=== PATIENT | female | born 1970 | race Caucasian/White ===

== ENCOUNTER 2017-01-16 15:43 | Emergency (ER) | payer OTHER ==
[~2017-01-16] VITALS: Ht 165.1 cm; Wt 77.3 kg
[2017-01-16] MEDS ORDERED: OMEP40CA2 PO (15:53)
[2017-01-16] MEDS ORDERED: TUMS500C PO (15:54)
[2017-01-16 16:50] LABS: BASO % 0.4 % (0.0-1.0); EOS # 0.2 K/mm3 (0.0-0.50); EOS % 2.7 % (0.0-3.0); LARGE UNSTAINED CELL # 0.1 K/mm3 (0.0-0.4); LARGE UNSTAINED CELL % 1.6 % (0.0-4.0); LYMPH # 1.9 K/mm3 (1.5-4.5); LYMPH % 22.4 % (24.0-44.0); MEAN CORPUSCULAR HEMOGLOBIN 30.9 pg (27.0-33.0); MEAN CORPUSCULAR HGB CONC 34.2 g/dl (32.0-36.5); MEAN CORPUSCULAR VOLUME 90.5 fl (80.0-96.0); MONO # 0.6 K/mm3 (0.0-0.8); MONO % 7.3 % (0.0-5.0); NEUTROPHILS # 5.2 K/mm3 (1.8-7.7); NEUTROPHILS % 65.6 % (36.0-66.0); PLATELET COUNT, AUTOMATED 308 k/mm3 (150-450); RED CELL DISTRIBUTION WIDTH 12.5 % (11.5-14.5); WHITE BLOOD COUNT 7.9 K/mm3 (4.0-10.0)
[2017-01-16 16:55] LABS: INR 0.89
[2017-01-16 17:10] LABS: ALKALINE PHOSPHATASE 45 U/L (45-117); ALT/SGPT 33 U/L (12-78); AST/SGOT 25 U/L (15-37); BILIRUBIN,DIRECT < 0.1 MG/DL (0.0-0.2); BILIRUBIN,TOTAL 0.3 MG/DL (0.2-1.0); BLOOD UREA NITROGEN 9 MG/DL (7-18); CALCIUM LEVEL 8.1 MG/DL (8.5-10.1); CARBON DIOXIDE LEVEL 26 MEQ/L (21-32); CHLORIDE LEVEL 108 MEQ/L (98-107); CREATININE FOR GFR 0.77 MG/DL (0.55-1.02); FREE T4 1.04 NG/DL (0.76-1.46); GLUCOSE, FASTING 90 MG/DL (70-105); POTASSIUM SERUM 3.6 MEQ/L (3.5-5.1); SODIUM LEVEL 142 MEQ/L (136-145); TOTAL PROTEIN 6.5 GM/DL (6.4-8.2)
[2017-01-16 17:39] LABS: ALBUMIN 3.9 GM/DL (3.2-5.2); ANION GAP 8 MEQ/L (8-16)
[2017-01-16] MEDS ORDERED: NS 1,000 ML IV ONE ×2 (17:45→21:00)
--- NOTE | 2017-01-16 17:55 | REP ---
HISTORY: Chest pain. COMPARISON: None. The technique utilized in obtaining the radiograph has magnified the cardiac silhouette and accentuated the interstitial markings. The superior mediastinal structures are midline. The cardiac silhouette is unremarkable in size, shape, and position. The diaphragmatic surfaces of the lungs are regular, and the costophrenic angles are clear. The pulmonary zabala are clear. The imaged osseous structures are intact. IMPRESSION: There is no acute cardiopulmonary disease. Signed by Jose Walters DO 01/16/2017 06:58 P
[2017-01-16] MEDS ORDERED: ASPIRIN 81 MG CHEW TABLET PO ONE (18:45)
--- NOTE | 2017-01-16 20:36 | ECGEPIP ---
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
--- NOTE | 2017-01-16 20:38 | ECGEPIP ---
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
--- NOTE | 2017-01-16 20:40 | ECGEPIP ---
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
[2017-01-16] MEDS ORDERED: ISOVUE-370 76% 100ML VIAL (Q9967) As Ordered ONE (21:42)
--- NOTE | 2017-01-16 23:40 | REPUSA ---
CLINICAL HISTORY: Chest pain. TECHNIQUE: Scans are obtained with the bolus injection of IV contrast media. COMMENTS: There is excellent opacification of the aorta and pulmonary arterial structures. The aorta is normal caliber and there is no dissection of the intima. No defect is seen in the pulmonary arteries to suggest pulmonary embolus. The lungs are fully expande d and there is no consolidation, mass, or pleural effusion. There are no enlarged mediastinal or hilar lymph nodes. Bilateral breast prostheses are in place. Small hiatal hernia is present. There is evidence of a lobulated cyst in the anterior segment of the right hepatic lobe which measure s 3.2 x 2.3 cm. The bony structures appear intact. IMPRESSION: 1. CTA Chest negative for pulmonary embolus. 2. Small hiatal hernia. 3. Lobulated cyst in the anterior segment of the right hepatic lobe which measures 3.2 x 2.3 cm.
[2017-01-16 23:53] VITALS: BP 132/88
[2017-01-17] MEDS ORDERED: ASPI81TA85 PO (00:01)
--- NOTE | 2017-01-17 07:24 | ED PDOC ---
Post-Departure Follow-Up certified letter sent to patient regarding radiology report Willow Lopez MD Jan 17, 2017 07:24
[2017-02-15] MEDS ORDERED: MULTCAP11 PO (10:58)
[2017-02-15] MEDS ORDERED: CALC600T60 PO (10:58)
[2017-02-15] MEDS ORDERED: VITA100067 PO (10:58)
[2017-02-15] MEDS ORDERED: HYDRO50TAB PO (10:58)
[2017-02-15] MEDS ORDERED: MAGN500C PO (10:58)
== END 2017-01-17 00:15 | disposition home or self-care (01) ==
LOC: M ED 15:43
DX: R07.9 Chest pain, unspecified (principal)
CPT/HCPCS: 71010; 71275; 80048; 80076; 82550; 82553; 84439; 84443; 85025; 85610; 85730; 93005; 93041; 94760; 99285; Q9967

== ENCOUNTER 2017-01-25 18:42 | Emergency (ER) | payer OTHER ==
[~2017-01-25] VITALS: Ht 165.1 cm; Wt 77.3 kg
[~2017-01-25 18:42] MED LIST: ASPI81TA85 PO; OMEP40CA2 PO; TUMS500C PO
[2017-01-25] MEDS ORDERED: MORPHINE 4 MG/ML 1ML SYRINGE IV ONE (19:15)
[2017-01-25] MEDS ORDERED: KETOROLAC 30 MG/ML VIAL (J1885) IV ONE (19:15)
[2017-01-25] MEDS ORDERED: NS 500 ML IV ONE (19:15)
[2017-01-25] MEDS ORDERED: ONDANSETRON 4MG/2ML VIAL (J2405) IV ONE (19:15)
[2017-01-25 19:54] LABS: BASO % 0.4 % (0.0-1.0); EOS % 0.4 % (0.0-3.0); LARGE UNSTAINED CELL # 0.1 K/mm3 (0.0-0.4); LYMPH # 0.8 K/mm3 (1.5-4.5); LYMPH % 7.7 % (24.0-44.0); MEAN CORPUSCULAR HEMOGLOBIN 30.2 pg (27.0-33.0); MEAN CORPUSCULAR VOLUME 88.8 fl (80.0-96.0); MONO # 0.8 K/mm3 (0.0-0.8); MONO % 8.1 % (0.0-5.0); NEUTROPHILS # 8.1 K/mm3 (1.8-7.7); NEUTROPHILS % 82.4 % (36.0-66.0); PLATELET COUNT, AUTOMATED 289 k/mm3 (150-450); WHITE BLOOD COUNT 9.8 K/mm3 (4.0-10.0)
[2017-01-25 20:01] LABS: INR 0.87
[2017-01-25] MEDS ORDERED: fentaNYL 100 MCG/2 ML INJECTION (J3010) IV ONE (20:15)
[2017-01-25 20:23] LABS: ALBUMIN 4.1 GM/DL (3.2-5.2); ALBUMIN/GLOBULIN RATIO 1.52 (1.00-1.93); ALKALINE PHOSPHATASE 48 U/L (45-117); ALT/SGPT 22 U/L (12-78); ANION GAP 8 MEQ/L (8-16); AST/SGOT 11 U/L (15-37); BILIRUBIN,DIRECT 0.1 MG/DL (0.0-0.2); BILIRUBIN,TOTAL 0.3 MG/DL (0.2-1.0); BLOOD UREA NITROGEN 10 MG/DL (7-18); CALCIUM LEVEL 8.8 MG/DL (8.5-10.1); CARBON DIOXIDE LEVEL 25 MEQ/L (21-32); CHLORIDE LEVEL 104 MEQ/L (98-107); CREATININE FOR GFR 0.85 MG/DL (0.55-1.02); GLOMERULAR FILTRATION RATE > 60.0 (>58); GLUCOSE, FASTING 112 MG/DL (70-105); POTASSIUM SERUM 3.9 MEQ/L (3.5-5.1); SODIUM LEVEL 137 MEQ/L (136-145); TOTAL PROTEIN 6.8 GM/DL (6.4-8.2)
[2017-01-25] MEDS ORDERED: ISOVUE-370 76% 100ML VIAL (Q9967) As Ordered ONE (21:04)
--- NOTE | 2017-01-25 22:20 | REPUSA ---
CLINICAL HISTORY: RLQ pain and right flank pain. TECHNIQUE: Multiple axial, coronal, sagittal CT images were obtained through the abdomen and pelvis. Images were obtained before and after IV contrast administration. Oral contrast material was not adm inistered COMMENTS: Note is made of multiple hepatic cysts, the largest is located in the anterior segment of the right l obe and is lobulated measuring 3.2 x 2.4 cm. There is no intra or extrahepatic biliary ductal dilata tion. The spleen is normal. The gallbladder is within normal limits. The pancreas is of normal con tour and attenuation characteristics. There is no evidence of adrenal mass. Both kidneys demonstrate prompt and equal nephrograms. The kidneys are normal in size, shape and con figuration. There is no evidence of renal or ureteral mass. No renal or ureteral calculi are identi fied. There is no hydroureter or hydronephrosis. No evidence for appendicitis. Note is made of fluid filled thick wall loops of bowel compatible with enteritis. All segments are involved. There is also evidence of fluid filled thick wall loops of t he colon compatible with colitis. All segments are involved. No evidence for small or large bowel ob struction. There is no evidence of abdominal ascites or lymphadenopathy. There is no evidence of intrinsic or extrinsic bladder mass. There is no pelvic ascites or lymphaden opathy. Within the right ovary note is made of 3 x 2.6 cm fat containing mass compatible with a dermoid. The patient is status post hysterectomy. The left ovary is not identified with certainty. Small hiatal hernia is seen. Bibasilar atelectatic changes are present. Bilateral breasts prosthese s are present. Images of the lung bases show no evidence of pleural or parenchymal mass. There are no pleural effusions. Small fat containing umbilical hernia is seen. The bony structures are free of lytic or blastic lesions. IMPRESSION: 1. Evidence of enteritis and colitis. Infectious and inflammatory etiologies are considered. Consi chantal consultation with GI service. Follow-up with colonoscopy and endoscopy. 2. Multiple hepatic cysts, the largest is 3.2 cm. 3. 3 cm right ovarian dermoid. 4. Small hiatal hernia is seen. 5. Bibasilar atelectatic changes. 6. Bilateral breasts prostheses. 7. Small fat containing umbilical hernia.
[2017-01-25] MEDS ORDERED: methylPREDNISolone INJ 125 MG/2 ML VIAL (J2930) IV ONE (23:30)
[2017-01-25] MEDS ORDERED: PRED20TA PO (23:30)
[2017-01-25 23:56] VITALS: BP 124/83
--- NOTE | 2017-01-26 08:23 | ECGEPIP ---
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
[2017-02-15] MEDS ORDERED: HYDRO50TAB PO (10:58)
[2017-02-15] MEDS ORDERED: CALC600T60 PO (10:58)
[2017-02-15] MEDS ORDERED: MULTCAP11 PO (10:58)
[2017-02-15] MEDS ORDERED: MAGN500C PO (10:58)
[2017-02-15] MEDS ORDERED: VITA100067 PO (10:58)
== END 2017-01-26 00:07 | disposition home or self-care (01) ==
LOC: M ED 18:42
DX: K52.9 Noninfective gastroenteritis and colitis, unspecified (principal)
CPT/HCPCS: 74178; 80048; 80076; 81001; 83605; 83690; 85025; 85610; 93005; 93041; 96361; 96374; 96375; 99284; J1885; J2405; J2930; J3010; Q9967

== ENCOUNTER 2017-02-22 09:01 | Outpatient (CLI) | payer OTHER ==
[~2017-02-22] VITALS: Ht 165.1 cm; Wt 71.2 kg
[~2017-02-22 09:01] MED LIST changes: +CALC600T60 PO; +HYDRO50TAB PO; +MAGN500C PO; +MULTCAP11 PO; +PRED20TA PO; +VITA100067 PO
[2017-02-22] MEDS ORDERED: NS 1,000 ML IV SCH (09:15)
[2017-02-22] MEDS ORDERED: fentaNYL 100 MCG/2 ML INJECTION (J3010) As Ordered ONE (10:12)
[2017-02-22] MEDS ORDERED: PROPOFOL 200 MG/20 ML VIAL As Ordered ONE ×2 (10:13→10:43)
[2017-02-22] MEDS ORDERED: LIDOCAINE 2% INJ 100 MG/5 ML SDV (FOR ANES.) As Ordered ONE (10:13)
--- NOTE | 2017-02-22 11:21 | ROOR ---
Patient Name: Lisa Roldan Procedure Date: 02/22/2017 10:28 AM Date of : 1970 Age: 47 Room: [facility] Gender: Female Note Status: Finalized Procedure: Upper GI endoscopy Indications: Epigastric abdominal pain, Abnormal CT of the GI tract Providers: Fabian Horn MD Referring MD: GLENYS VERONICA MD Requesting Provider: Medicines: Monitored Anesthesia Care Complications: No immediate complications. Procedure: Pre-Anesthesia Assessment: - Prior to the procedure, a History and Physical was performed, and patient medications and allergies were reviewed. The patient is competent. The risks and benefits of the procedure and the sedation options and risks were discussed with the patient. All questions were answered and informed consent was obtained. Patient identification and proposed procedure were verified by the physician, the nurse and the chief mate in the procedure room. Mental Status Examination: normal. Airway Examination: normal oropharyngeal airway and neck mobility. Respiratory Examination: clear to auscultation. CV Examination: normal. Prophylactic Antibiotics: The patient does not require prophylactic antibiotics. Prior Anticoagulants: The patient has taken no previous anticoagulant or antiplatelet agents. ASA Grade Assessment: II - A patient with mild systemic disease. After reviewing the risks and benefits, the patient was deemed in satisfactory condition to undergo the procedure. The anesthesia plan was to use monitored anesthesia care (MAC). Immediately prior to administration of medications, the patient was re-assessed for adequacy to receive sedatives. The heart rate, respiratory rate, oxygen saturations, blood pressure, adequacy of pulmonary ventilation, and response to care were monitored throughout the procedure. The physical status of the patient was re-assessed after the procedure. The Endoscope was introduced through the mouth, and advanced to the second part of duodenum. The upper GI endoscopy was accomplished without difficulty. The patient tolerated the procedure well. Findings: LA Grade A (one or more mucosal breaks less than 5 mm, not extending between tops of 2 mucosal folds) esophagitis with no bleeding was found in the lower third of the esophagus. Biopsies were taken with a cold forceps for histology. Verification of patient identification for the specimen was done by the physician and nurse using the patient's name, date and medical record number. Estimated blood loss was minimal. The entire examined stomach was normal. The duodenal bulb and second portion of the duodenum were normal. Biopsies for histology were taken with a cold forceps for evaluation of celiac disease. Impression: - LA Grade A reflux esophagitis. Biopsied. - Normal stomach. - Normal duodenal bulb and second portion of the duodenum. Biopsied. Recommendation: - Patient has a contact number available for emergencies. The signs and symptoms of potential delayed complications were discussed with the patient. Return to normal activities tomorrow. Written discharge instructions were provided to the patient. - Resume previous diet. - Continue present medications. - Use a proton pump inhibitor PO daily for 12 weeks. - Return to GI clinic as previously scheduled 03/08/2017 9:00 AM. - Return to primary care physician. Fabian Horn MD Fabian Horn MD 02/22/2017 11:20:50 AM This report has been signed electronically. Number of Addenda: 0 Note Initiated On: 02/22/2017 10:28 AM Estimated Blood Loss: Estimated blood loss was minimal.
[2017-02-22 11:25] VITALS: BP 113/74
--- NOTE | 2017-02-22 11:26 | ROOR ---
Patient Name: Lisa Roldan Procedure Date: 02/22/2017 10:29 AM Date of : 1970 Age: 47 Room: [facility] Gender: Female Note Status: Finalized Procedure: Colonoscopy Indications: Abnormal CT of the GI tract Providers: Fabian Horn MD Referring MD: GLENYS VERONICA MD Requesting Provider: Medicines: Monitored Anesthesia Care Complications: No immediate complications. Procedure: Pre-Anesthesia Assessment: - Prior to the procedure, a History and Physical was performed, and patient medications and allergies were reviewed. The patient is competent. The risks and benefits of the procedure and the sedation options and risks were discussed with the patient. All questions were answered and informed consent was obtained. Patient identification and proposed procedure were verified by the physician, the nurse and the filler leaf cutter long in the procedure room. Mental Status Examination: alert and oriented. Airway Examination: normal oropharyngeal airway and neck mobility. Respiratory Examination: clear to auscultation. CV Examination: normal. Prophylactic Antibiotics: The patient does not require prophylactic antibiotics. Prior Anticoagulants: The patient has taken no previous anticoagulant or antiplatelet agents. ASA Grade Assessment: II - A patient with mild systemic disease. After reviewing the risks and benefits, the patient was deemed in satisfactory condition to undergo the procedure. The anesthesia plan was to use monitored anesthesia care (MAC). Immediately prior to administration of medications, the patient was re-assessed for adequacy to receive sedatives. The heart rate, respiratory rate, oxygen saturations, blood pressure, adequacy of pulmonary ventilation, and response to care were monitored throughout the procedure. The physical status of the patient was re-assessed after the procedure. The Colonoscope was introduced through the anus and advanced to the terminal ileum, with identification of the appendiceal orifice and IC valve. The colonoscopy was performed without difficulty. The patient tolerated the procedure well. The quality of the bowel preparation was good. The terminal ileum, ileocecal valve, appendiceal orifice, and rectum were photographed. Scope insertion time was 4 minutes. Scope withdrawal time was 10 minutes. The total duration of the procedure was 20 minutes. Findings: The perianal and digital rectal examinations were normal. The terminal ileum appeared normal. A 3 mm polyp was found in the transverse colon. The polyp was sessile. The polyp was removed with a cold biopsy forceps. Resection and retrieval were complete. Verification of patient identification for the specimen was done by the physician and nurse using the patient's name, date and medical record number. Estimated blood loss was minimal. A few small-mouthed diverticula were found in the sigmoid colon. There was no evidence of diverticular bleeding. Non-bleeding external and internal hemorrhoids were found during retroflexion. The hemorrhoids were medium-sized. Normal mucosa was found from rectum to cecum. Biopsies for histology were taken with a cold forceps from the ascending colon, transverse colon, descending colon and rectum for evaluation of microscopic colitis. Impression: - The examined portion of the ileum was normal. - One 3 mm polyp in the transverse colon, removed with a cold biopsy forceps. Resected and retrieved. - Mild diverticulosis in the sigmoid colon. There was no evidence of diverticular bleeding. - Non-bleeding external and internal hemorrhoids. - Normal mucosa from rectum to cecum. Biopsied. Recommendation: - Patient has a contact number available for emergencies. The signs and symptoms of potential delayed complications were discussed with the patient. Return to normal activities tomorrow. Written discharge instructions were provided to the patient. - High fiber diet. - Continue present medications. - Await pathology results. - Repeat colonoscopy in 5-10 years for surveillance based on pathology results. - Return to GI clinic as previously scheduled 03/08/2017 at 9:00 AM. - Return to primary care physician. Fabian Horn MD Fabian Horn MD 02/22/2017 11:26:16 AM This report has been signed electronically. Number of Addenda: 0 Note Initiated On: 02/22/2017 10:29 AM Estimated Blood Loss: Estimated blood loss was minimal.
== END 2017-02-22 11:32 | disposition home or self-care (01) ==
LOC: M OPP 09:01
PROVIDERS: ATTEND Internal Medicine Gastroenterology
DX: R93.3 Abnormal findings on diagnostic imaging of other parts of digestive tract (principal); D12.3 Benign neoplasm of transverse colon; K57.30 Diverticulosis of large intestine without perforation or abscess without bleeding; K64.4 Residual hemorrhoidal skin tags; K64.8 Other hemorrhoids; K21.0 Gastro-esophageal reflux disease with esophagitis; F41.9 Anxiety disorder, unspecified; F33.9 Major depressive disorder, recurrent, unspecified; G43.909 Migraine, unspecified, not intractable, without status migrainosus; Z87.442 Personal history of urinary calculi; Z85.828 Personal history of other malignant neoplasm of skin; Z79.899 Other long term (current) drug therapy; Z88.5 Allergy status to narcotic agent
CPT/HCPCS: 43239; 45380; 88305; J3010

== ENCOUNTER → 2018-07-29 | Outpatient (CLI) | payer OTHER ==
--- NOTE | 2018-07-29 10:58 | REP ---
CT Head without contrast HISTORY: Headache COMPARISON: None There is no intraparenchymal hemorrhage, acute infarct, mass or midline shift. The ventricular system is normal in appearance. There is no extra cerebral collection. There is no fracture. The visualized sinuses are clear. IMPRESSION: There is no intracranial lesion. Electronically Signed by Jasbir Hurtado MD 07/29/2018 10:50 A
--- NOTE | 2018-07-29 11:03 | REP ---
CT cervical spine without contrast HISTORY: Neck pain COMPARISON: None There is no acute fracture or subluxation. Disc bulges are present at the C3-4 and C4-5 levels. A disc bulge with associated osteophyte formation is present at the C5-6 level. There is minimal narrowing of the spinal canal. Uncinate process hypertrophy is present at the C5-6 level. This produces minimal narrowing of the C5 neural foramina. There is no other disc bulge or herniation. The remaining neural foramina are patent. The C5-6 intervertebral disc is decreased in height consistent with disc degeneration. There is nonunion of the right posterior C1 neural arch. IMPRESSION: 1. There is no acute fracture or subluxation. 2. There is cervical spondylosis at the C3-4 through C5-6 levels. Electronically Signed by Jasbir Hurtado MD 07/29/2018 10:55 A
== END ==
LOC: M RAD 10:26
PROVIDERS: ATTEND Family Medicine
DX: M54.2 Cervicalgia (principal); R51 Headache

== ENCOUNTER → 2019-07-09 | Outpatient (REF) | payer OTHER ==
[~2019-07-09] MED LIST changes: +HYDR1TAB33 PO; -HYDRO50TAB PO; -OMEP40CA2 PO; +OMEP40CA97 PO
[2019-07-09 16:07] LABS: APPEARANCE, URINE HAZY (CLEAR); BACTERIA, URINE AUTO 1+ (NEGATIVE); BASO % 0.4 % (0.0-1.0); BILIRUBIN, URINE AUTO NEGATIVE (NEGATIVE); BLOOD, URINE BLOOD NEGATIVE (NEGATIVE); COLOR, URINE YELLOW (YELLOW); EOS # 0.1 10^3/uL (0.0-0.5); EOS % 1.3 % (0.0-3.0); GLUCOSE, URINE (UA) AUTO NEGATIVE (NEGATIVE); HEMOGLOBIN 12.7 g/dl (12.0-15.5); KETONE, URINE AUTO NEGATIVE (NEGATIVE); LEUKOCYTE ESTERASE, URINE AUTO 1+ (NEGATIVE); LYMPH # 1.9 10^3/uL (1.5-5.0); LYMPH % 22.6 % (24.0-44.0); MEAN CORPUSCULAR HEMOGLOBIN 29.2 pg (27.0-33.0); MEAN CORPUSCULAR HGB CONC 32.6 g/dl (32.0-36.5); MEAN CORPUSCULAR VOLUME 89.7 fl (80.0-96.0); MONO # 0.7 10^3/uL (0.0-0.8); MONO % 7.7 % (0.0-5.0); NEUTROPHILS # 5.7 10^3/uL (1.5-8.5); NEUTROPHILS % 67.8 % (36.0-66.0); NITRITE, URINE AUTO POSITIVE (NEGATIVE); PLATELET COUNT, AUTOMATED 376 10^3/uL (150-450); PROTEIN, URINE AUTO NEGATIVE (NEGATIVE); RBC, URINE AUTO 2 /HPF (0-3); RED BLOOD COUNT 4.35 10^6/uL (4.00-5.40); SPECIFIC GRAVITY URINE AUTO 1.006 (1.002-1.035); SQUAMOUS EPITHELIAL CELL UR AU 0 /HPF (0-6); UROBILINOGEN, URINE AUTO 0.2 mg/dL (0.0-2.0); WBC, URINE AUTO 6 /HPF (0-3); WHITE BLOOD COUNT 8.4 10^3/uL (4.0-10.0)
[2019-07-09 16:12] LABS: ALBUMIN 4.3 GM/DL (3.2-5.2); ALT/SGPT 76 U/L (12-78); BILIRUBIN,TOTAL 0.4 MG/DL (0.2-1.0); BLOOD UREA NITROGEN 12 MG/DL (7-18); C REACTIVE PROTEIN QUANTITATIV < 0.30 MG/DL (0.00-0.30); CARBON DIOXIDE LEVEL 26 MEQ/L (21-32); CHLORIDE LEVEL 106 MEQ/L (98-107); CREATININE FOR GFR 0.78 MG/DL (0.55-1.30); GLOMERULAR FILTRATION RATE > 60.0 (>58); GLUCOSE, FASTING 87 MG/DL (70-100); POTASSIUM SERUM 4.3 MEQ/L (3.5-5.1); SODIUM LEVEL 140 MEQ/L (136-145); TOTAL PROTEIN 7.2 GM/DL (6.4-8.2)
== END ==
LOC: M SFHCPLAZ 14:12
PROVIDERS: ATTEND Internal Medicine Infectious Disease
DX: N39.0 Urinary tract infection, site not specified (principal)
CPT/HCPCS: 36415; 80053; 81001; 85025; 86140; 87088; 87186; G0463

== ENCOUNTER → 2019-07-16 | Outpatient (CLI) | payer OTHER ==
[~2019-07-16] MED LIST changes: +ISOVUE-370 76% 100ML VIAL (Q9967) As Ordered ONE
--- NOTE | 2019-07-16 21:23 | REP ---
Clinical: History of recurrent urinary tract infection. Comparison: 01/25/2017. Technique: Precontrast, contrast enhanced, and and delayed images of the abdomen and pelvis using 100 ml Isovue 370 intravenous contrast material. Coronal and sagittal re-formations obtained. Findings: 15 x 11 x 7 mm nonobstructing calculus in the lower pole left kidney noted. The bilateral kidneys are otherwise normal in appearance and without perinephric stranding, hydronephrosis, cystic or mass lesion. Liver demonstrates multiple scattered cysts primarily sub centimeter in size, and including 3.7 cm simple cyst in the anterior segment right lobe. Spleen, pancreas, gallbladder, and bilateral adrenal glands are normal. The enteric system is without obstruction or acute inflammatory process. Pelvis demonstrates normal bladder and evidence for prior hysterectomy. A stable fat containing lesion in the deep posterior pelvis measuring approximately 3.5 cm maximal diameter may reflect teratoma. Impression: 1. 15 mm nonobstructing calculus in the lower pole left kidney. 2. Stable benign appearing hepatic cysts. 3. Stable fat-containing lesion in the deep right brittni pelvis likely representing teratoma. Electronically Signed by Narciso Patel MD 07/16/2019 09:14 P
== END ==
LOC: M RAD 17:06
PROVIDERS: ATTEND Internal Medicine Infectious Disease
DX: N39.0 Urinary tract infection, site not specified (principal); N20.0 Calculus of kidney
CPT/HCPCS: 74178; Q9967

== ENCOUNTER → 2019-08-14 | Outpatient (REF) | payer OTHER ==
[~2019-08-14] MED LIST changes: -ISOVUE-370 76% 100ML VIAL (Q9967) As Ordered ONE
== END ==
LOC: M SMT 18:07
PROVIDERS: ATTEND Urology
DX: N39.0 Urinary tract infection, site not specified (principal)
CPT/HCPCS: 81002; 87088; 87186; G0463